=== PATIENT | male | born 1980 | race Caucasian/White ===

== ENCOUNTER 2020-08-01 12:08 | Emergency (ER) | payer OTHER ==
[~2020-08-01] VITALS: Ht 175.3 cm; Wt 68.9 kg
--- OUTSIDE RECORDS SUMMARY | ~2020-08-01 | XMS | Clinical Summary ---
Demographics + + + | Address | [address] | | | [place] [address] | + + + | Home Phone | | + + + | Preferred Language | Unknown | + + + | Marital Status | Unknown | + + + | Mandaen Affiliation | Unknown | + + + | Race | Unknown | + + + | Ethnic Group | Unknown | + + + Author + + + | Author | [facility] | + + + | Organization | [facility] | + + + | Address | Unknown | + + + | Phone | Unavailable | + + + Care Team Providers + +------+ + | Care Obstetrical Nurse Name | Role | Phone | + +------+ + PCP | Unavailable | + +------+ + Source Comments JOSE ELIAS is fully live on both [facility] and [facility] Allergies Not on File Medications Not on file Active Problems Not on file Encounters +--------+ + + + + | Date | Type | Specialty | Care Team | Description | +--------+ + + + + | 07/03/ | Abstract | Neurology | Iris Young MD | | | 2020 | | | | | +--------+ + + + + from Last 3 Months Social History + +-------+ +--------+------+ | Tobacco Use | Types | Packs/Day | Years | Date | | | | | Used | | + +-------+ +--------+------+ | Never Assessed | | | | | + +-------+ +--------+------+ + + + | Sex Assigned at | Date Recorded | | | | + + + | Not on file | | + + + Last Filed Vital Signs Not on file Plan of Treatment + + +-------+ + | Health Maintenance | Due Date | Last | Comments | | | | Done | | + + +-------+ + | Influenza (Flu) | | | | | vaccination (#1) | 0 | | | + + +-------+ + | Pneumococcal | Aged Out | | No longer eligible based on patient's age | | vaccination | | | to complete this topic | + + +-------+ + Results Not on filefrom Last 3 Months Insurance + +--------+ +--------+-------+---------+--------+ | Payer | Benefi | Subscriber | Effect | Phone | Address | Type | | | t Plan | ID | imani | | | | | | / | | Dates | | | | | | Group | | | | | | + +--------+ +--------+-------+---------+--------+ | QUOTATION CLERK MEDICAID | QUOTATION CLERK | [id number] | Effect | | | Medica | | | [place] | | im[place] | | | id | | | [place] | | for | | | | | | | | all | | | | | | | | dates | | | | + +--------+ +--------+-------+---------+--------+ + +--------+ +--------+ + + | Guarantor Name | Accoun | Relation to | Date | Phone | Billing Address | | | t Type | Patient | of | | | | | | | | | | + +--------+ +--------+ + + | Andrew Mojica | Person | Self [birth year] | [address] | | | al/Fam | | 1980 | [phone] | [address] [place], [place] | | | [place]iza | | | [address] (Home) | [phone] | + +--------+ +--------+ + +"
--- OUTSIDE RECORDS SUMMARY | ~2020-08-01 | XMS | Encounter Summary ---
Demographics + + + | Address | [address] | | | [place] [address] | + + + | Home Phone | | + + + | Preferred Language | Unknown | + + + | Marital Status | Unknown | + + + | Temple Affiliation | Unknown | + + + | Race | Unknown | + + + | Ethnic Group | Unknown | + + + Author + + + | Author | [facility] | + + + | Organization | [facility] | + + + | Address | Unknown | + + + | Phone | Unavailable | + + + Care Team Providers + +------+ + | Care Console Assembler Name | Role | Phone | + +------+ + PCP | Unavailable | + +------+ + Encounter Details +--------+ + + + + | Date | Type | Department | Care Team | Description | +--------+ + + + + | 07/03/ | Abstract | [facility] | Jaretra, Iris Mcclain MD | | | 2019 | | [facility] | [address] | | | | [facility] Center | [place], [place] | | | | | [address] | [address] | | | | | [place], [place] | [phone] | | | | | [address] | | | | | | [phone] | | | +--------+ + + + + Social History + +-------+ +--------+------+ | Tobacco [...] on file | | + + + documented as of this encounter Plan of Treatment Not on filedocumented as of this encounter Visit Diagnoses Not on filedocumented in this encounter"
[2020-08-01] MEDS ORDERED: PALIPERIDONE ER3 MG PO (12:41)
[2020-08-01] MEDS ORDERED: CYCLOBENZAPRINE10 MG PO (12:43)
[2020-08-01] MEDS ORDERED: LIDODERM1 EACH TOP (12:43)
[2020-08-01] MEDS ORDERED: NAPROSYN500 MG PO (12:43)
[2020-08-01] MEDS ORDERED: MAPAP500 MG PO (12:43)
== END 2020-08-01 12:58 | disposition home or self-care (01) ==
LOC: ED 12:08
DX: M54.5 Low back pain (principal); F31.9 Bipolar disorder, unspecified; F20.9 Schizophrenia, unspecified; F90.9 Attention-deficit hyperactivity disorder, unspecified type; F41.9 Anxiety disorder, unspecified; F17.200 Nicotine dependence, unspecified, uncomplicated
CPT/HCPCS: 99283; A9270

== ENCOUNTER 2021-01-29 07:23 | Emergency (ER) | payer OTHER ==
[~2021-01-29] VITALS: Ht 175.3 cm; Wt 69.8 kg
[~2021-01-29 07:23] MED LIST: CYCLOBENZAPRINE10 MG PO; LIDODERM1 EACH TOP; MAPAP500 MG PO; NAPROSYN500 MG PO; PALIPERIDONE ER3 MG PO
[2021-01-29] MEDS ORDERED: SUMATRIPTAN SU100 MG PO (07:37)
[2021-01-29] MEDS ORDERED: OMEPRAZOLE20 MG PO (07:37)
[2021-01-29] MEDS ORDERED: TOPIRAMATE25 MG PO (07:37)
[2021-01-29] MEDS ORDERED: REMERON30 MG PO (07:38)
[2021-01-29] MEDS ORDERED: MIRTAZAPINE30 MG PO (07:38)
[2021-01-29] MEDS ORDERED: ONDANSETRON ODT8 MG PO (08:26)
== END 2021-01-29 09:11 | disposition home or self-care (01) ==
LOC: ED 07:23
DX: K52.9 Noninfective gastroenteritis and colitis, unspecified (principal); G43.909 Migraine, unspecified, not intractable, without status migrainosus; F17.200 Nicotine dependence, unspecified, uncomplicated; Z79.899 Other long term (current) drug therapy
CPT/HCPCS: 80053; 85025; 96374; 96375; 99284-25; J1200; J1790; J1885; J7030